=== PATIENT | female | born 1995 | race Caucasian/White ===

== ENCOUNTER 2022-06-17 15:07 | Emergency (ER) | payer MEDICAID ==
[~2022-06-17] VITALS: Ht 165.1 cm; Wt 73.0 kg
[2022-06-17 15:07] VITALS: BP_SYST 120
--- NOTE | 2022-06-17 15:10 | NUR ---
BROUGHT BACK TO ROOM #7 AND TRIAGED. REPORT GIVEN TO TANO
--- NOTE | 2022-06-17 15:35 | NUR ---
PT BIB MOTHER FROM HOME C/O SEVER ABD PAIN AND BLOODY DISCHARGE FROM VAGINA STARTING 06/16 AT 1430. PT IS 8 WEEKS . PT STATES NAUSEA INTERMITTANTLY. PT IS ON 4TH WITH 2 CHILDREN AND 1 PREVIOUS MISCARRIGE. PT RESTING COMFORTABLY, MOTHER BEDSIDE
[2022-06-17] MEDS ORDERED: ACETAMINOPHEN 325 MG TABLET PO ONE (15:45)
--- NOTE | 2022-06-17 15:51 | NUR ---
ER at bedside examining patient.
[2022-06-17 16:18] LABS: BASOPHILS % (AUTO) 0.3 % (0.0-2.0); EOSINOPHILS # (AUTO) 0.1 K/uL (0.0-0.4); EOSINOPHILS % (AUTO) 0.7 % (0.0-4.0); HEMATOCRIT 37.1 % (36-48); HEMOGLOBIN 12.6 g/dL (12.0-16.0); LYMPHOCYTES # (AUTO) 1.9 K/uL (1.0-5.5); MEAN CORPUSCULAR HEMOGLOBIN 31 pg (27-31); MEAN CORPUSCULAR HGB CONC 34 % (32-36); MEAN CORPUSCULAR VOLUME 91 fL (79.0-98.0); MONOCYTES # (AUTO) 0.6 K/uL (0.0-1.0); MONOCYTES % (AUTO) 7.4 % (1.7-9.3); NEUTROPHILS # (AUTO) 5.3 K/uL (1.8-7.7); NEUTROPHILS % (AUTO) 67.6 % (40.0-70.0); PLATELET COUNT (AUTO) 231 K/uL (130-430); RED BLOOD CELL COUNT(AUTO) 4.08 MIL/uL (4.2-6.2); RED CELL DISTRIBUTION WIDTH 13.4 % (9.0-15.0); WHITE BLOOD COUNT (AUTO) 7.8 K/uL (4.8-10.8)
[2022-06-17 16:38] LABS: CALCIUM 8.6 mg/dL (8.4-11.0); CREATININE 0.73 mg/dL (0.55-1.30)
[2022-06-17 16:50] LABS: BILIRUBIN,URINE NEGATIVE (NEGATIVE); BLOOD, URINE 3+ (NEGATIVE); COLOR,URINE YELLOW (YELLOW); GLUCOSE,URINE NEGATIVE (NEGATIVE); KETONES,URINE 1+ (NEGATIVE); LEUKOCYTE ESTERASE ,URINE TRACE (NEGATIVE); NITRITE, URINE NEGATIVE (NEGATIVE); PH,URINE 5.5 (5.0-8.0); PROTEIN URINE NEGATIVE (NEGATIVE); UROBILINOGEN,URINE 0.2 (0.2-1.0)
[2022-06-17 16:55] LABS: CLARITY/URINE SLIGHTLY HAZY (CLEAR)
[2022-06-17 17:01] LABS: BACTERIA,URINE FEW /HPF (None Seen); MUCUS,URINE None Seen /LPF (None Seen)
[2022-06-17 17:04] LABS: ALBUMIN 3.3 g/dL (3.4-4.8); TOTAL BILIRUBIN 0.3 mg/dL (0.0-1.0)
[2022-06-17] MEDS ORDERED: NITROFURANTOIN MONOHYD/M-CRYST 100 MG CAPSULE (MacroBID) PO ONE (17:15)
--- NOTE | 2022-06-17 17:35 | NUR ---
PT VSS RESTING COMFORTABLY WITH PARTNER AT BEDSIDE RAILS UP
[2022-06-17] MEDS ORDERED: NITR-85 PO (17:44)
--- NOTE | 2022-06-17 17:46 | NUR ---
ER at bedside examining patient.
[2022-06-17 18:04] VITALS: BP_SYST 107
--- NOTE | 2022-06-17 18:08 | NUR ---
Patient given written and verbal discharge instructions and verbalizes understanding. ER MD discussed with patient the results and treatment provided. Patient in stable condition. ID arm band removed. Rx of NITROFURANTION given. Patient educated on pain management and to follow up with PMD. Pain Scale . Opportunity for questions provided and answered. Medication side effect fact sheet provided.
== END 2022-06-17 18:04 | disposition home or self-care (01) ==
LOC: SED 15:07
DX: O23.41 Unspecified infection of urinary tract in pregnancy, first trimester (principal); N39.0 Urinary tract infection, site not specified; O20.0 Threatened abortion; Z3A.01 Less than 8 weeks gestation of pregnancy; Z79.899 Other long term (current) drug therapy
CPT/HCPCS: 36415; 76801; 76817; 80053; 81000; 84702; 85025; 86901; 87086; 99284